=== PATIENT | male | born 1990 | race Caucasian/White ===

== ENCOUNTER 2017-07-21 11:02 | Emergency (ER) | payer SELFPAY ==
[~2017-07-21 11:02] MED LIST: FLU20 PO; NO RTN MEDS; OSE75 FT
--- NOTE | 2017-07-21 11:06 | ER Report ---
History and Physical Time Seen By MD: 11:05 (ADAN VIGIL) HPI/ROS CHIEF COMPLAINT: Suicidal and homicidal ideation HISTORY OF PRESENT ILLNESS: This is a 27-year-old male who presents to the emergency department with Black Police Department for some suicidal and homicidal ideations. According to the Police Department the patient's neighbors called dispatch when he tripped over their dog's leash and started yelling at the dog and and not making any sense. When the officers arrived patient was yelling and screaming and not making any sense, very upset with his roommate. Has made some homicidal and suicidal comments. Patient arrives in handcuffs, in PD custody but not detained. I cannot have a complete my initial conversation at this time he is having manic episodes. He is yelling and screaming about the [place]BBIE, and the government controlling everyone. He did state that he has recently "done some meth". He cannot tell me exactly when. Officers state that he does have a strong odor of alcohol. Patient remains in handcuffs with 2 officers at the bedside. Once the patient is done yelling he starts to cry and begins to mumble. He has no other complaints. REVIEW OF SYSTEMS: Constitutional: No fever, no chills. Eyes: No discharge. ENT: No sore throat. Cardiovascular: No chest pain, no palpitations. Respiratory: No cough, no shortness of breath. Gastrointestinal: No abdominal pain, no vomiting. Genitourinary: No hematuria. Musculoskeletal: No back pain. Skin: No rashes. Neurological: No headache. Psych: As above. (ADAN VIGIL) Allergies: Coded Allergies: No Known Allergies (Verified Allergy, Mild, 03/01/16) Home Meds No Active Prescriptions or Reported Meds Past Medical/Surgical History Patient has a past medical and surgical history of asthma, right thumb fracture , substance abuse, methamphetamine use, alcohol abuse, depression and anxiety. (ADAN VIGIL) Reviewed Nurses Notes: Yes (ADAN VIGIL) Hx Smoking: Yes Smoking Status: Current: Every Day Smoker (ADAN VIGIL) Constitutional Vital Sign - Last 24 Hours 3/08/0507/21/17 07/21/17 07/21/17 11:02 11:04 11:17 11:32 Temp 99.3 Pulse ??? 130 ? Resp 18 B/P (MAP) 142/116 (125) 142/116 Pulse Ox 95 O2 Delivery Room Air 07/21/17 07/21/17 07/21/17 07/21/17 11:47 11:51 12:00 12:02 Pulse ? Resp 11 B/P (MAP) 118/70 (86) 121/43 (69) Pulse Ox 89 07/21/17 07/21/17 07/21/17 07/21/17 12:17 12:30 12:32 12:47 Pulse 94 99 105 Resp 8 13 11 B/P (MAP) 112/58 (76) Pulse Ox 97 97 95 07/21/17 07/21/17 07/21/17 07/21/17 12:52 12:52 13:00 13:07 Pulse 100 95 Resp 15 16 B/P (MAP) 63/45 (51) Pulse Ox 95 O2 Flow Rate 2.0 07/21/17 07/21/17 07/21/17 07/21/17 13:12 13:15 13:22 13:30 Pulse 95 Resp 17 B/P (MAP) 92/53 (66) 99/49 (66) 99/49 (66) Pulse Ox 98 07/21/17 07/21/17 07/21/17 07/21/17 13:37 13:45 13:52 13:54 Temp 98.3 Pulse 92 89 Resp 16 14 B/P (MAP) 94/47 (63) Pulse Ox 98 98 07/21/17 07/21/17 07/21/17 07/21/17 13:57 14:00 14:12 14:15 Pulse 88 89 Resp 12 B/P (MAP) 96/52 (67) 102/59 (73) Pulse Ox 98 07/21/17 07/21/17 07/21/17 07/21/17 14:27 14:30 14:42 14:45 Pulse 82 86 Resp 0 6 B/P (MAP) 107/63 (78) 94/65 (75) Pulse Ox 95 07/21/17 07/21/17 07/21/17 07/21/17 14:50 15:00 15:05 15:15 Pulse 83 84 Resp 11 12 B/P (MAP) 85/47 (60) 85/44 (58) Pulse Ox 95 07/21/17 07/21/17 07/21/17 07/21/17 15:20 15:30 15:35 15:45 Pulse 81 75 Resp 15 B/P (MAP) 85/49 (61) 86/70 (75) 07/21/17 07/21/17 07/21/17 07/21/17 15:50 15:59 16:05 16:15 Pulse 82 73 B/P (MAP) 123/102 (109) 95/61 (72) 07/21/17 07/21/17 07/21/17 07/21/17 16:20 16:30 16:35 16:45 Pulse 81 79 B/P (MAP) 83/43 (56) 87/42 (57) 07/21/17 07/21/17 07/21/17 07/21/17 16:50 17:00 17:05 17:17 Pulse 82 83 B/P (MAP) 80/41 (54) 100/65 (77) 07/21/17 07/21/17 07/21/17 07/21/17 17:20 17:30 17:35 17:44 Pulse 80 81 Resp 12 12 B/P (MAP) 93/56 (68) 91/66 (74) 103/57 (72) Pulse Ox 94 92 07/21/17 07/21/17 07/21/17 07/21/17 17:49 17:50 17:50 18:00 Temp 98.3 Pulse 74 B/P (MAP) 105/60 (75) 97/68 (78) Pulse Ox 92 07/21/17 07/21/17 07/21/17 07/21/17 18:04 18:10 18:19 18:20 Pulse 74 77 B/P (MAP) 96/60 (72) 92/60 (71) Pulse Ox 91 92 07/21/1718 07/21/17 07/21/17 18:30 18:34 18:40 18:49 Pulse 78 80 B/P (MAP) 90/65 (73) 100/56 (71) Pulse Ox 89 89 07/21/17 07/21/17 07/21/17 07/21/17 18:50 19:00 19:04 19:10 Pulse 84 B/P (MAP) 93/57 (69) 95/62 (73) 94/63 (73) Pulse Ox 89 07/21/17 07/21/17 07/21/17 07/21/17 19:19 19:22 19:30 19:34 Pulse ??? 87 B/P (MAP) 91/69 (76) 109/64 (79) Pulse Ox 94 07/21/17 07/21/17 19:40 19:45 B/P (MAP) 79/42 (54) 105/70 (82) (CORINNABRUCE MARIE MD) Physical Exam General Appearance: The patient is alert, has no immediate need for airway protection and no signs of toxicity, yelling, cussing, very agitated, in handcuffs with [employer] at bedside. Eyes: Pupils equal and round no pallor or injection. ENT, Mouth: Mucous membranes are dry, lips are dry and flaky. No lesions. Respiratory: There are no retractions, lungs are clear to auscultation. Cardiovascular: Regular rate and rhythm, no murmurs, clicks or rubs. Gastrointestinal: Abdomen is soft and non tender, no masses, bowel sounds normal. Neurological: Alert, moving all extremities, no focal neural deficits. Unable to fully evaluate neurological status is patient yelling is and screaming. Skin: Warm and dry, no rashes. Musculoskeletal: Neck is supple non tender. Extremities are nontender, nonswollen and have full range of motion. No skin breakdown around the handcuffs site. DIFFERENTIAL DIAGNOSIS: After history and physical exam differential diagnosis was considered for psychosis including but not limited to chronic psychosis, medication noncompliance, medication side effect, depression and illicit drug use. (ADAN VIGIL-) Medical Decision Making Data Points Result Diagram: 07/21/17 1220 07/21/17 1220 Laboratory Hematology Test 07/21/17 12:20 07/21/17 12:47 Red Blood Count 5.34 M/uL (4.00-5.60) Mean Corpuscular Volume 84.9 fL (80.0-96.0) Mean Corpuscular Hemoglobin 29.6 pg (26.0-33.0) Mean Corpuscular Hemoglobin Concent 34.9 g/dL (32.0-36.0) Red Cell Distribution Width 13.9 % (11.5-14.5) Mean Platelet Volume 8.6 fL (7.2-11.1) Neutrophils (%) (Auto) 65.9 % (39.4-72.5) Lymphocytes (%) (Auto) 26.3 % (17.6-49.6) Monocytes (%) (Auto) 6.0 % (4.1-12.4) Eosinophils (%) (Auto) 0.7 % (0.4-6.7) Basophils (%) (Auto) 1.1 % (0.3-1.4) Nucleated RBC Relative Count (auto) 0.1 /100WBC Neutrophils # (Auto) 4.6 K/uL (2.0-7.4) Lymphocytes # (Auto) 1.9 K/uL (1.3-3.6) Monocytes # (Auto) 0.4 K/uL (0.3-1.0) Eosinophils # (Auto) 0.0 K/uL (0.0-0.5) Basophils # (Auto) 0.1 K/uL (0.0-0.1) Nucleated RBC Absolute Count (auto) 0.00 K/uL Sodium Level 144 mmol/L (137-145) Potassium Level 3.7 mmol/L (3.5-5.0) Chloride Level 104 mmol/L (98-107) Carbon Dioxide Level 19 mmol/L (22-30) Blood Urea Nitrogen 9 mg/dl (9-21) Creatinine 1.40 mg/dl (0.66-1.25) Glomerular Filtration Rate Calc > 60.0 Random Glucose 79 mg/dl (75-110) Calcium Level 8.9 mg/dl (8.4-10.2) Magnesium Level 2.2 mg/dl (1.7-2.2) Total Bilirubin 0.3 mg/dl (0.2-1.3) Aspartate Amino Transf (AST/SGOT) 25 U/L (0-35) Alanine Aminotransferase (ALT/SGPT) 36 U/L (0-56) Alkaline Phosphatase 54 U/L (0-126) Total Protein 7.0 gm/dl (6.3-8.2) Albumin 4.3 g/dl (3.5-5.0) Salicylates Level < 10 mg/L Salicylate Last Dose Date unk Acetaminophen Level < 10 ug/ml Serum Alcohol 173 mg/dl Urine Color Yellow Urine Clarity Clear Urine pH 6.0 pH (4.8-9.5) Urine Specific [place] 1.009 Urine Protein Negative mg/dL (NEGATIVE) Urine Glucose (UA) Negative mg/dL (NEGATIVE) Urine Ketones Negative mg/dL (NEGATIVE) Urine Blood Negative (NEGATIVE) Urine Nitrite Negative (NEGATIVE) Urine Bilirubin Negative (NEGATIVE) Urine Urobilinogen Negative mg/dL (0.2-1.9) Urine Leukocyte Esterase Negative (NEGATIVE) Urine RBC None /HPF (0-2/HPF) Urine WBC None /HPF (0-5/HPF) Urine Squamous Epithelial Cells None /LPF (NONE-FEW) Urine Bacteria Negative /HPF (NONE-FEW) Urine Hyaline Casts Many /LPF (NONE-FEW) Urine Mucus None /HPF (NONE-FEW) Urine Opiates Screen Negative Urine Barbiturates Screen Negative Ur Tricyclic Antidepressants Screen Negative Urine Phencyclidine Screen Negative Urine Amphetamines Screen Positive Urine Benzodiazepines Screen Negative Urine Cocaine Screen Negative Urine Cannabinoids Screen Negative Chemistry Test 07/21/17 12:20 07/21/17 12:47 White Blood Count 7.0 k/uL (4.5-11.0) Red Blood Count 5.34 M/uL (4.00-5.60) Hemoglobin 15.8 g/dL (14.0-18.0) Hematocrit 45.3 % (42.0-52.0) Mean Corpuscular Volume 84.9 fL (80.0-96.0) Mean Corpuscular Hemoglobin 29.6 pg (26.0-33.0) Mean Corpuscular Hemoglobin Concent 34.9 g/dL (32.0-36.0) Red Cell Distribution Width 13.9 % (11.5-14.5) Platelet Count 314 K/uL (150-450) Mean Platelet Volume 8.6 fL (7.2-11.1) Neutrophils (%) (Auto) 65.9 % (39.4-72.5) Lymphocytes (%) (Auto) 26.3 % (17.6-49.6) Monocytes (%) (Auto) 6.0 % (4.1-12.4) Eosinophils (%) (Auto) 0.7 % (0.4-6.7) Basophils (%) (Auto) 1.1 % (0.3-1.4) Nucleated RBC Relative Count (auto) 0.1 /100WBC Neutrophils # (Auto) 4.6 K/uL (2.0-7.4) Lymphocytes # (Auto) 1.9 K/uL (1.3-3.6) Monocytes # (Auto) 0.4 K/uL (0.3-1.0) Eosinophils # (Auto) 0.0 K/uL (0.0-0.5) Basophils # (Auto) 0.1 K/uL (0.0-0.1) Nucleated RBC Absolute Count (auto) 0.00 K/uL Glomerular Filtration Rate Calc > 60.0 Calcium Level 8.9 mg/dl (8.4-10.2) Magnesium Level 2.2 mg/dl (1.7-2.2) Total Bilirubin 0.3 mg/dl (0.2-1.3) Aspartate Amino Transf (AST/SGOT) 25 U/L (0-35) Alanine Aminotransferase (ALT/SGPT) 36 U/L (0-56) Alkaline Phosphatase 54 U/L (0-126) Total Protein 7.0 gm/dl (6.3-8.2) Albumin 4.3 g/dl (3.5-5.0) Salicylates Level < 10 mg/L Salicylate Last Dose Date unk Acetaminophen Level < 10 ug/ml Serum Alcohol 173 mg/dl Urine Color Yellow Urine Clarity Clear Urine pH 6.0 pH (4.8-9.5) Urine Specific [place] 1.009 Urine Protein Negative mg/dL (NEGATIVE) Urine Glucose (UA) Negative mg/dL (NEGATIVE) Urine Ketones Negative mg/dL (NEGATIVE) Urine Blood Negative (NEGATIVE) Urine Nitrite Negative (NEGATIVE) Urine Bilirubin Negative (NEGATIVE) Urine Urobilinogen Negative mg/dL (0.2-1.9) Urine Leukocyte Esterase Negative (NEGATIVE) Urine RBC None /HPF (0-2/HPF) Urine WBC None /HPF (0-5/HPF) Urine Squamous Epithelial Cells None /LPF (NONE-FEW) Urine Bacteria Negative /HPF (NONE-FEW) Urine Hyaline Casts Many /LPF (NONE-FEW) Urine Mucus None /HPF (NONE-FEW) Urine Opiates Screen Negative Urine Barbiturates Screen Negative Ur Tricyclic Antidepressants Screen Negative Urine Phencyclidine Screen Negative Urine Amphetamines Screen Positive Urine Benzodiazepines Screen Negative Urine Cocaine Screen Negative Urine Cannabinoids Screen Negative Toxicology Test 07/21/17 12:20 07/21/17 12:47 Salicylates Level < 10 mg/L Salicylate Last Dose Date unk Acetaminophen Level < 10 ug/ml Serum Alcohol 173 mg/dl Urine Opiates Screen Negative Urine Barbiturates Screen Negative Ur Tricyclic Antidepressants Screen Negative Urine Phencyclidine Screen Negative Urine Amphetamines Screen Positive Urine Benzodiazepines Screen Negative Urine Cocaine Screen Negative Urine Cannabinoids Screen Negative Urinalysis Test 07/21/17 12:47 Urine Color Yellow Urine Clarity Clear Urine pH 6.0 pH (4.8-9.5) Urine Specific [place] 1.009 Urine Protein Negative mg/dL (NEGATIVE) Urine Glucose (UA) Negative mg/dL (NEGATIVE) Urine Ketones Negative mg/dL (NEGATIVE) Urine Blood Negative (NEGATIVE) Urine Nitrite Negative (NEGATIVE) Urine Bilirubin Negative (NEGATIVE) Urine Urobilinogen Negative mg/dL (0.2-1.9) Urine Leukocyte Esterase Negative (NEGATIVE) Urine RBC None /HPF (0-2/HPF) Urine WBC None /HPF (0-5/HPF) Urine Squamous Epithelial Cells None /LPF (NONE-FEW) Urine Bacteria Negative /HPF (NONE-FEW) Urine Hyaline Casts Many /LPF (NONE-FEW) Urine Mucus None /HPF (NONE-FEW) (BRUCE JONES MD) ED Course/Re-evaluation ED Course The patient was admitted to room via police department custody. A history and physical were obtained to the best of my ability. Differential diagnoses were considered. Initially it was very difficult to get any information out of the patient he was screaming and yelling about the DEBBIE and garments involvement in controlling everybody. Patient sitting on the gurney and handcuffs having moments of apparent rage where he starts shaking and then will begin yelling again I have gone in multiple times to talk to the patient's try to calm him down. Patient will calm down for a few moments and then continues to yell disturbing the emergency department with obscenities. This time I did talk to the patient's and he has agreed to take some oral medications to help calm him down. Patient was initially given 10 mg of oral Zyprexa, 50 mg of oral Benadryl , and 2 mg of oral Ativan. After about 30-45 minutes the patient was still agitated and not fully cooperative. I did then order 10 mg of IM Zyprexa. About 15 minutes after the Zyprexa was given I go back in and talked to the patient. Patient is now agreeable to giving us a urine specimen as well as collecting blood work. Patient's lips are very dry. Patient states he did methamphetamines about 1 day ago, he also admits to drinking alcohol but he is not sure how much she's had or what he's had or when his last drink was. He has also made some suicidal comments while in the emergency department, not giving any more information other than just wanting to kill himself. He also states he wishes he could stop using meth, "it makes me go crazy and do crazy stuff". He denies taking any other illicit drugs. Patient is less anxious and less agitated. Patient has calmed down to a point at which the officers can remove the handcuffs over they do remain at the bedside. I discussed this case with Dr. Jones and we have detained the patient. The patient slept most of the time after the last dose of zyprexa was given. Vitals remained stable while in the ED. The patient was escorted to the snf center with officers. The patient's laboratory studies were unremarkable, other than his creatinine 1.40. Creatinine in 2008 was 1.20. Negative UA. The alcohol was 173. The urine drug screen was positive for methamphetamines. The patient is resting comfortably, oxygen saturation 97%, heart rate 90, blood pressure 99/49. 07/21/2017 2:52:50 pm the patient is resting comfortably, vital signs are stable, heart rate 79 BPM. SPO2 95%. An NIBP 94/65. The patient has been accepted to [facility]. 07/21/2017 3:27:13 pm We have been in contact with the county home demonstrator and trying to get the transfer resolved. 07/21/2017 3:58:59 pm awaiting mental health examiner 07/21/2017 5:39:48 pm health examiner did come in and up hold the total 25 paperwork. The patient will be transferred from emergency department to the snf center. 07/21/2017 5:51:42 pm nursing staff did give the patient up to assist him to the bathroom he did ambulate though it was a 2 person assist, we will keep an eye on him for another hour and reassess. Patient was otherwise cooperative. 07/21/2017 7:59:25 pm the patient was ambulated to the bathroom again patient did much better, he is asking for something eat. The patient will be given some food and then transported to the snf center. Decision to Disposition Date: Jul 21, 2017 Decision to Disposition Time: 20:00 (ADAN VIGIL PATTERN MARKER-BC) Depart Departure Latest Vital Signs Vital Signs Date Time Temp Pulse Resp B/P (MAP) Pulse Ox O2 Delivery O2 Flow Rate FiO2 07/21/17 19:45 105/70 (82) 07/21/17 19:34 87 94 07/21/17 17:50 98.3 07/21/17 17:35 12 07/21/17 12:52 2.0 07/21/17 11:04 Room Air (BRUCE JONES MD) Impression: Primary Impression: Suicidal ideation Condition: Improved Disposition: [facility] TO CARE HOME/CORRECTIONAL F New Scripts No Active Prescriptions or Reported Meds Patient Instructions: Abuse of Alcohol (ED), Methamphetamine Abuse (ED) Additional Instructions: Drink plenty of fluids. Get plenty of rest. Stop drinking alcohol and abusing methamphetamines. SIEBEL ARCHITECT/PA consult with MD: Verbally MD Consult Note: Patient with homicidal and suicidal statements, not in his right mind, admits to recent methamphetamine use, currently on police hold, but not detained by [employer]. Was initially on police hold and not detained; further information came out once he arrived here at the hospital. Because of combativeness and agitation, he was given oral doses of Zyprexa (10mg), Ativan ( 2mg) and Benadryl (50mg) which he agreed to take. These were not effective to calm him down, so an IM dose of Zyprexa 10mg was given as well. See the history and physical noted above by our nurse practitioner, Adan, who is taking care of the patient here in the ER. My emergency snf process was begun after he was sedated by the above medicines so I was unable read the patient his rights in association with the title 25 process and will need to be done at a later time, but would still be considered detained at this point. Discussed with the Black police who plan on dropping the police hold and only giving a citation at this point. The patient has been accepted by [facility], but because of snf, [place] [facility] [place] is causing a problem. Contacting behavioral health, the county home demonstrator and mental health examiner to help resolve and find a good disposition plan for him. Determined that the patient would go to the snf center at this time and further treatment to be determined. (BRUCE JONES MD) ADAN VIGIL PATTERN MARKER-BC Jul 21, 2017 11:05 BRUCE JONES MD Jul 21, 2017 12:33
[2017-07-21] MEDS ORDERED: diphenhydrAMINE 25 MG CAP PO ONE (11:15)
[2017-07-21] MEDS ORDERED: LORazepam 1 MG TAB PO ONE (11:15)
[2017-07-21] MEDS ORDERED: OLANZapine ZYDIS ODT 5MG TABDP PO ONE (11:15)
[2017-07-21] MEDS ORDERED: WATER STERILE 10 ML VIAL IM ONLY ONE (11:40)
[2017-07-21] MEDS ORDERED: OLANZapine 10 MG VIAL IM ONLY ONE (11:40)
[2017-07-21 12:40] LABS: PLATELET COUNT, AUTOMATED 314 K/uL (150-450)
--- NOTE | 2017-07-21 17:08 | [facility] - Psychiatric Evaluation ---
ER - Title 25 MHE Evaluation Title 25 Evaluation Patient Detained By: Physician (Roscoe Jones MD and Adan Grimm) Referral Source: Law Enforcement Date Patient Detained: Jul 21, 2017 Time Patient Detained: 12: Date Prison Expires: Jul 25, 2017 Time Prison Expires: : Legal Status: Police Hold: Yes Legal Status: Residence: [facility] Resident, State Resident Assessment Data Provided By: Other Source (ER Professionals) HPI/ROS: From ER professional Adan Grimm, "The patient was admitted to room via police department custody. A history and physical were obtained to the best of my ability. Differential diagnoses were considered. Initially it was very difficult to get any information out of the patient he was screaming and yelling about the DEBBIE and garments involvement in controlling everybody. Patient sitting on the gurney and handcuffs having moments of apparent rage where he starts shaking and then will begin yelling again I have gone in multiple times to talk to the patient's try to calm him down. Patient will calm down for a few moments and then continues to yell disturbing the emergency department with obscenities. This time I did talk to the patient's and he has agreed to take some oral medications to help calm him down. Patient was initially given 10 mg of oral Zyprexa, 50 mg of oral Benadryl, and 2 mg of oral Ativan. After about 30-45 minutes the patient was still agitated and not fully cooperative. I did then order 10 mg of IM Zyprexa. About 15 minutes after the Zyprexa was given I go back in and talked to the patient. Patient is now agreeable to giving us a urine specimen as well as collecting blood work. Patient's lips are very dry. Patient states he did methamphetamines about 1 day ago, he also admits to drinking alcohol but he is not sure how much she's had or what he's had or when his last drink was. He has also made some suicidal comments while in the emergency department, not giving any more information other than just wanting to kill himself. He also states he wishes he could stop using meth, "it makes me go crazy and do crazy stuff". He denies taking any other illicit drugs. Patient is less anxious and less agitated. Patient has calmed down to a point at which the officers can remove the handcuffs over they do remain at the bedside Admit due to SI or Attempt: No Suicide Plan: Has Plan w/out Access Current Suicide Plan Patient stated to ER professional FLEX Pelletier, that he wants to kill himself. Alcohol or Drugs Involved: Yes Current Intoxication Info: Patient toxicology screen is positive for amphetamines and alcohol Is Patient Info Reliable: No (Patient was psychotic, and agitated. he was chemically restrained, and now sleeping beyond easy wakefulness. Called his name loudly several times.) Is Collateral Info Reliable: Yes ( and ER doctors) Current Home Psych Meds: Unknown at this time Mental Status Exam General Appearance: Other (Sleeping related to chemical restraint) Speech: Other (Sleeping related to chemical restraint) Mood: Other (Sleeping related to chemical restraint) Affect: Other (Sleeping related to chemical restraint) Thought Process: Other (Sleeping related to chemical restraint) Thought Content: Suicidal Ideation (Patient stated to ER professional FLEX Pelletier, that he wants to kill himself.), Homicidal Ideation ("Has made some homicidal and suicidal comments," says ER Adan MCCORD) Insight Judgment: Poor Sleep: Hypersomnia Delusions: Persecutory, Paranoia Current Risk & History Current Dangerous Risk Assessm: Current Suicide Ideation, Homicidal Ideation, Agitation this Encounter, Ubable to Care for Self Past Dangerous Risk Assessm: Other (Cared for in 2008 at [facility] for psychiatric problem of suicidal ideation ) Prior Alcohol/Drug Abuse Extent of AOD use is unknown at this time. Previous Suicide Attempt: No Previous Attempt Previous Psychiatric Illness: No Previous Psychiatric Treatment: Yes (Was seen in 2009 at [facility] for suicidal ideation) Risk Assessment & Disposition Evaluated Risk Assessment: Risk is very high. Patient is psychotic, unable to perceive reality. Without chemical restraint he is agitated and aggressive. Clear he is experiencing some delusions about being a "DEBBIE pawn" that seem to affect him in impulsive and unsafe ways. He is screaming and tearful when not medicated. He needs a structured, safe environment to stabilize. Without stabilization, he is likely to further decompensate, hurt himself or others physically. Impression: Primary Impression: Suicidal ideation Meets Mental Illness Req.: Yes Meets Dangerousness Req.: Yes Emergency Prison to be: Upheld Decision Comment: Risk is very high. Patient is psychotic, unable to perceive reality. Without chemical restraint he is agitated and aggressive. Clear he is experiencing some delusions about being a "DEBBIE pawn" that seem to affect him in impulsive and unsafe ways. He is screaming and tearful when not medicated. He needs a structured, safe environment to stabilize. Without stabilization, he is likely to further decompensate, hurt himself or others physically. Patient is unable to care for himself and his needs are currently beyond the scope of outpatient care. Date of Decision: Jul 21, 2017 Time of Decision: 17:00 Patient is Medically Stable at: Yes Disposition: Transfer (In ER currently, will be subsequently held in safe setting of [facility]) MARIA LUISA MURGUIA LPC Jul 21, 2017 17:08
[2017-07-21 19:45] VITALS: BP 105/70
== END 2017-07-21 20:15 ==
LOC: ER 12:22
DX: R45.851 Suicidal ideations (principal); F15.90 Other stimulant use, unspecified, uncomplicated; F32.9 Major depressive disorder, single episode, unspecified; F41.9 Anxiety disorder, unspecified
CPT/HCPCS: 36415; 80305; 80320; 80329; 81001; 83735; 84443; 85025; 96372; 99284; A4216; J3490; Q0163; 82040; 82247; 82310; 82374; 82435; 82565; 82947; 84075; 84132; 84155; 84295; 84450; 84460; 84520

== ENCOUNTER 2017-07-23 15:46 | Emergency (ER) | payer SELFPAY ==
[2017-07-23 16:19] LABS: PLATELET COUNT, AUTOMATED 280 K/uL (150-450)
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
[2017-07-23 17:51] VITALS: BP 126/58
== END 2017-07-23 18:00 ==
LOC: ER 16:09
DX: F41.1 Generalized anxiety disorder (principal)
CPT/HCPCS: 36415; 80305; 80320; 80329; 81001; 82040; 82247; 82310; 82374; 82435; 82565; 82947; 83735; 84075; 84132; 84155; 84295; 84443; 84450; 84460; 84520; 85025; 99284

== ENCOUNTER 2017-07-23 16:50 | Inpatient (IN) | payer SELFPAY ==
[~2017-07-23] VITALS: Ht 177.8 cm; Wt 79.4 kg
[2017-07-23] MEDS ORDERED: NICOTINE CARTRIDGE 1 EA PO PRN (18:55)
[2017-07-23] MEDS ORDERED: NICOTINE INH SYSTEM 10 MG/INH INH PRN (18:55)
[2017-07-23] MEDS ORDERED: MAG HYD/AL HYD/SIMETH 30ML UDC PO PRN (18:55)
[2017-07-23 22:19] VITALS: BP 134/85
[2017-07-24 04:12] VITALS: BP 109/57
[2017-07-24] MEDS: MULTIVITAMINS PO SCH (08:23)
[2017-07-24] MEDS: buPROPion SR 150 MG TABCR PO SCH (14:18)
[2017-07-24 21:44] VITALS: BP 126/78
[2017-07-25 06:18] VITALS: BP 110/65
[2017-07-25] MEDS: MULTIVITAMINS PO SCH (08:19)
[2017-07-25] MEDS: buPROPion SR 150 MG TABCR PO SCH ×2 (08:19→12:37)
--- NOTE | 2017-07-25 10:05 | BHS Progress Note ---
[facility] - Subjective Progress Notes Subjective Patient cooperative with treatment team this AM, alcohol withdrawal considered complete, mood good. Patient tolerant of wellbutrin and will increase dose today. Will set up outpatient treatment, and plan for discharge tomorrow. . Psychosis associated with methamphetamine use resolved. appetite and sleep good. No other concerns. Suicidal Ideation: None Homicidal Ideation: None [facility] - Objective Physical Exam Vital Signs Vital Signs Date Time Temp Pulse Resp B/P (MAP) Pulse Ox O2 Delivery O2 Flow Rate FiO2 07/25/17 06:18 97.5 46 15 110/65 (80) 95 Room Air Muscle Strength and Tone: WNL Gait and Station: Steady [facility] Medications Reviewed: Side Effects, Benefits of Medication, Risks Allergies Reviewed: Yes Mental Status Exam General Appearance: Casual, Well Groomed, Good Eye Contact, Cooperative, Polite , Good Interaction, No Unkept, No Tearful, No Psychomotor Agitation, No Psychomotor Retardation, No Bizarre Mannerisms, No Tics Speech: Clear, Spontaneous, Normal Rate, Normal Rhythm, Normal Volume, Normal Tone, No Garbled, No Rambling, No Inappropriate Mood: Dysthmic/Depressed (improved) Affect: Full and Appropriate, Calm, No Withdrawn, No Tearful, Anxious (some) Thought Process: Organized, Logical, Goal Directed, No Loose Associations Thought Content: No Suicidal Ideation, No Homicidal Ideation, No Delusions, No Auditory Halllucinations, No Visual Hallucinations, No Thought Broadcasting, No Ideas of Reference, No Obsessions, No Compulsions Sensorium: Clear Cognition: Alert & Oriented-Person, Alert & Oriented-Place, Alert & Oriented- Time, [id number] Memory: Immediate, Recent, Remote Intelligence: Average Insight Judgment: Fair (grossly intact in absence of methamphetamine , and alcohol. ) [facility] Assessment and Plan [id number] Encounter Date: Jul 25, 2017 [id number] Encounter Time: 09:40 [facility] Plan: Necessary Precautions, Individual/Group Therapy, Admin/Titrate Meds, Educate Patient Tobacco Medications: Started Multpiple Antipsychotics Used: No Problems: (1) Stimulant use disorder Status: Chronic Assessment & Plan: moderate, to severe. psychosis resolved now, but secondary to acute use. Rule out persisting depressive disorder. (2) Alcohol use disorder, moderate, in early remission Status: Chronic Condition 1. increase wellbutrin SR to 150mg PO QAM and Qnoon 2. trial of hydroxizine 25 to 50 mg PO QAM PRN anxiety 3. plan for discharge tomorrow. SEEMA BRUCE MD Jul 25, 2017 10:05
[2017-07-25] MEDS: hydrOXYzine PAMOATE 25 MG CAP PO PRN (10:53)
--- NOTE | 2017-07-25 16:20 | HISTORY AND PHYSICAL ---
DATE OF ADMISSION: July 23, 2017 The patient was seen on 24 July 2017 for this dictation at approximately 11:00 a.m. PRESENTING PROBLEM AND CHIEF COMPLAINT Methamphetamine intoxication and related psychotic disturbance. HISTORY OF PRESENT ILLNESS This is a 27-year-old male who was initially brought to the [facility] Room on July 21, 2017, under an emergency detainment. The patient was seen to be experiencing suicidal and homicidal ideation, compounded by signs of psychosis, brought in by [place] [employer]. Apparently, neighbors called dispatch when he was found yelling outside and not making any sense. He was upset with his roommate. The patient made homicidal and suicidal comments. The patient was emergently detained. The patient was intoxicated with alcohol and admitted to using methamphetamine. The patient was brought to the local correction facility due to no available beds of the type necessary to house this patient on Behavioral Health. The patient was later discharged from skilled nursing when a bed became available and was brought to the Behavioral Health Unit on July 23, 2017. The patient was admitted on a voluntary basis at that time. During initial interview, the patient was calm and polite. Gross psychotic disturbance likely associated with methamphetamine and alcohol consumption had largely resolved. The patient reports he had abusing methamphetamine over and over. "I need to stop." The patient reports that peer pressure makes him succumb to continue using methamphetamine. The patient has been using amphetamines heavier and drinking more over the last eight months. The patient had no homicidal ideation that persisted. He had vague suicidal thoughts. The patient attributes this to drug and alcohol use. The patient may have a history of persisting depressive disorder type symptomatology in the past, but currently, the patient admits that alcohol and methamphetamine use is the likely precursor to a dysphoric and angry mood. The patient denies any history of spring. Psychotic condition seems to be related entirely to methamphetamine and exacerbated further with alcohol. This seems to have resolved. No panic attacks or PTSD. The patient does report some high social anxiety at times, and this needs further evaluation. The patient does not appear excessively anxious during the interview. The patient reports being organized at home overall. He denies any OCD, anorexia, or bulimia. He has never self-harmed. The patient reports somatization symptoms in the form of GI pain and tightness when under stress. Specific stressors in the patient's life are that he is not currently working. The patient reports he received some inheritance that he tried to live off of. The patient reports this was a mistake, and he should have been working as it gave him more time to abuse substances. The patient, again, admits to the peer pressure which the patient reports pushing him into using methamphetamine that "scrambles my brain." MENTAL HEALTH HISTORY The patient was an inpatient here once in 2008. He was angry with his mother at the time, according to past reports. Please see paper chart record as it preexisted electronic record. The patient reports he has only had about one month of sobriety in the last several years from substances. He was going to [facility]. It is unknown if he continues there. He has not been to rehab of any kind, and the patient denies a history of suicide attempt. FAMILY PSYCHIATRIC HISTORY The patient states his mother may suffer from bipolar illness, and his dad may have "drank some." Siblings may have some degree of psychiatric disturbance, but the patient is vague to the details. No suicides are believed to have been completed in the family history. PAST MEDICAL HISTORY The patient reports overall good health. MEDICATIONS He is not on any medications for medical cause and is not currently on any psychiatric medications. ALLERGIES The patient denies any allergies. SOCIAL HISTORY The patient was born in [place] and grew up in [place]. He reports his parents as at the time of his . His father when he was age 23 secondary to colon cancer. The patient reports having one brother and two sisters who are younger, it is believed, and he has some half-siblings as well. The patient reports growing up was difficult for him as he grew up with a severely disabled sister in the home which was hard on him and the family. The patient has never been in the . He has never . He has no children. He is currently not in a relationship with a significant other. He considers himself heterosexual. The patient last worked in the [employer] industry in February 2017. The patient reports receiving some inheritance after that and quitting work. He lives with one roommate. LEGAL HISTORY He has a legal history for DUI concerning alcohol at age 20 and a second DUI in 2015 concerning alcohol. SUBSTANCE ABUSE HISTORY The patient has experimented and used many substances in the past including MDMA , LSD, methamphetamine, marijuana, and alcohol. At this point, the patient desires to stop methamphetamine use, and the patient is cautioned about the effects of alcohol use as well. This will require further evaluation to see if the patient is sincere in his efforts to stop using. PHYSICAL EXAMINATION Please see emergency room note. The patient passed through the emergency room on July 23, 2017, after being discharged from skilled nursing. Vital signs at that time indicated temperature 98.6, pulse 90, respiratory rate 16, blood pressure 122/86 , and pulse oximetry 96% on room air. LABORATORY DATA CBC was unremarkable. CMP unremarkable as well. TSH was slightly elevated at 5.43. Urinalysis unremarkable. Toxicology screen positive for benzodiazepines , negative for serum alcohol, and negative for amphetamines after being in the correction facility. MENTAL STATUS EXAMINATION GENERAL APPEARANCE, BEHAVIOR, AND ATTITUDE: This is a polite, 27-year-old male. Psychosis associated initially with methamphetamine intoxication appears to have been resolved. Some psychomotor retardation evident. Making good eye contact. No bizarre mannerisms or tics. No periods of tearfulness. SPEECH: Quiet at times, but otherwise within normal limits. MOOD: Described as dysphoric, but improving. AFFECT: Minimally constricted and mood congruent. THOUGHT PROCESSES: Appeared largely goal directed and logical, the patient stating he would like help with drug and alcohol dependence. No loose associations or flight of ideas. THOUGHT CONTENT: Hallucinations associated with methamphetamine intoxication had resolved. No ideas of reference, thought broadcasting, delusions, obsessions, or compulsions. The patient is having some vague suicidal thoughts at times. He is denying homicidal ideation. SENSORIUM: Clear. COGNITION: Alert and oriented to person, place, time, and situation. MEMORY: Immediate, recent, and remote estimated intact. INTELLIGENCE: Average based on interview. INSIGHT AND JUDGMENT: Remain seemingly grossly intact and improving in the absence of alcohol or methamphetamine use. ASSESSMENT This is a 27-year-old male who may have some potential underlying anxiety and depressive symptoms; however, it is paramount that the patient first distance himself from all alcohol and substance use. Patient appears to be intellectualizing any symptoms at this point. We will treat alcohol withdrawal to completion. We will also look into any concerns with methamphetamine withdrawal, and we will consider Wellbutrin to help this patient possibly avoid methamphetamine use in the future if anxiety is not increased from Wellbutrin. DIAGNOSES 1. Alcohol use disorder, moderate. 2. Stimulant use disorder, moderate to severe. 3. Methamphetamine stimulant-induced psychosis. 4. Rule out persisting depressive disorder. 5. Rule out anxiety disorder, unspecified. PLAN 1. Admit to the unit. 2. Necessary precautions will be implemented. 3. The patient will participate in individual and group therapy. 4. Medications will be titrated accordingly. 5. Collateral information to be gained as necessary. 6. Estimated length of stay three to five days. MTDD
[2017-07-26 04:37] VITALS: BP 137/99
[2017-07-26] MEDS: buPROPion SR 150 MG TABCR PO SCH ×2 (08:00→12:20)
[2017-07-26] MEDS: MULTIVITAMINS PO SCH (08:25)
[2017-07-26] MEDS: hydrOXYzine PAMOATE 25 MG CAP PO PRN (08:27)
[2017-07-26] MEDS ORDERED: BUPR-126 PO (10:13)
[2017-07-26] MEDS ORDERED: HYDR25CA83 PO (10:16)
[2017-07-26] MEDS ORDERED: MULT-859 PO (10:17)
[2017-07-26] MEDS ORDERED: NICOTROL (11:54)
[2017-07-26] MEDS ORDERED: NIC10R INH (11:57)
[2017-07-26] MEDS ORDERED: NICOTROL CARTRIDGE PO (11:58)
[2017-07-26] MEDS ORDERED: buPROPion SR 150 MG TABCR PO SCH (12:00)
--- NOTE | 2017-07-27 20:09 | DISCHARGE SUMMARY ---
DATE OF ADMISSION: July 23, 2017 DATE OF DISCHARGE: July 26, 2017 The patient was seen regarding this discharge note around 0900 hours on 26 July 2017. 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 The patient then transferred to skilled nursing and returned to the Behavioral Health Unit on a voluntary basis to ensure full recovery of psychotic state. The patient was calm and polite throughout his interview, the patient demonstrating to some degree a level of immaturity throughout his stay. The patient was using alcohol and methamphetamine, again resulting in psychotic state. Psychosis resolved quickly. The patient agreed to a trial of Wellbutrin to hopefully help abstain and not increase anxiety. The patient was also placed on hydroxyzine with good results. The patient did take an active role in treatment. The patient is having ongoing conflict with roommate, whom the patient states also uses methamphetamine. The patient at time of discharge discharged into the care of his mother as the patient will likely part company with his roommate at this time. No suicidal or homicidal ideation existed. Tarasoff call was made to the patient's roommate as in a psychotic state the patient had voiced homicidal thoughts against roommate. The patient was discharged home. PHYSICAL EXAMINATION Please see emergency room note. Notable for: GENERAL: A 27-year-old male who had returned from previous skilled nursing stay where he was admitted under a state of psychosis. VITAL SIGNS: At time of admission, temperature 98.6, pulse 90, respiratory rate 16, blood pressure 122/86, and pulse oximetry 96% on room air. PSYCHIATRIC: The patient had largely normalized and returned to baseline behaviors. LABORATORY DATA CBC was unremarkable. CMP unremarkable. TSH slightly high at 5.43. Urinalysis unremarkable. Toxicology screen positive for benzodiazepines; negative for other substances of abuse. Undetectable serum alcohol level. Benzodiazepines were likely given in the hospital or skilled nursing facility setting. MENTAL STATUS EXAMINATION AT TIME OF DISCHARGE GENERAL APPEARANCE, BEHAVIOR, AND ATTITUDE: This is a thin, 27-year-old male interacting in a way that indicates a large degree of immaturity. The patient at times was trying to intellectualize any symptoms of illness. The patient did verbalize a desire to stop using illicit substances and alcohol. No psychomotor activation or retardation. No bizarre mannerisms or tics, making good eye contact. No periods of tearfulness. SPEECH: Largely within normal limits. Regular rate, rhythm, volume, and tone. MOOD: Described as "okay." AFFECT: Neutral to full at times and mood congruent overall. THOUGHT PROCESSES: Goal directed, logical. No loose associations or flight of ideas. THOUGHT CONTENT: Free of auditory or visual hallucinations, ideas of reference , thought broadcasting, delusions, obsessions, or compulsions. The patient is adamantly denying suicidal or homicidal ideation at time of discharge and, again , the patient's roommate had been notified secondary to the patient making brief homicidal statements toward roommate when in a state of psychosis and acute methamphetamine intoxication. SENSORIUM: Clear at time of discharge. COGNITION: Alert and oriented to person, place, time, and situation. MEMORY: Immediate, recent, and remote estimated intact. INTELLIGENCE: Average based on interview. INSIGHT AND JUDGMENT: Considered grossly intact and appropriate for outpatient care in the absence of illicit substance or alcohol use. RESULTS OF TESTING IMAGING: None. LABORATORY DATA: See above. CONSULTATIONS None. TREATMENT The patient received medications and participated in individual and group therapy. HOSPITAL COURSE The patient remained overall calm and cooperative throughout his stay. Psychosis completely resolved, likely related to amphetamine use. The patient' s alcohol withdrawal was considered very mild to nonexistent in nature. The patient's mood continued to improve. CONDITION OF PATIENT ON DISCHARGE Stable. Considered minimal risk to himself or others in the absence of alcohol or drug use. DISPOSITION The patient discharged to home in the care of his mother. The patient would follow up with outpatient medical management and therapy as scheduled. He was given the crisis line should symptoms return. He agreed to stop alcohol and illicit drug use. The patient will remain on a multivitamin with minerals daily , Wellbutrin SR 150 mg at breakfast and lunch, and Vistaril 25 to 50 mg p.o. every six hours p.r.n. for anxiety or insomnia. Risks, benefits, and alternatives of the above discharge plan were discussed. Informed consent was given to proceed with the above discharge plan by this competent patient and the patient's mother present at time of discharge. The patient's roommate is also aware of the patient's discharge. CARLOS
== END 2017-07-26 14:33 | disposition home or self-care (01) | DRG 897 ==
LOC: BHS 16:50
PROVIDERS: ADMIT Psychiatry & Neurology Psychiatry; ATTEND Psychiatry & Neurology Psychiatry
DX: F15.259 Other stimulant dependence with stimulant-induced psychotic disorder, unspecified (principal); R45.851 Suicidal ideations; F34.1 Dysthymic disorder; F10.20 Alcohol dependence, uncomplicated; F41.9 Anxiety disorder, unspecified; R45.850 Homicidal ideations; Y90.0 Blood alcohol level of less than 20 mg/100 ml; Z56.0 Unemployment, unspecified; Z59.2 Discord with neighbors, lodgers and landlord; Z81.1 Family history of alcohol abuse and dependence; Z81.8 Family history of other mental and behavioral disorders
CPT/HCPCS: 90853; Q0177

== ENCOUNTER → 2017-08-14 | Outpatient (CLI) | payer SELFPAY ==
[~2017-08-14] MED LIST changes: +BUPR-126 PO; +HYDR25CA83 PO; +MULT-859 PO; +NIC10R INH; +NICOTROL; +NICOTROL CARTRIDGE PO
--- NOTE | 2017-08-14 05:54 | RADIOLOGY IMAGING REPORT ---
FACILITY: [facility] - [place] PATIENT NAME: Winston Fish : 1990 MR: [id number] V: [id number] EXAM DATE: ORDERING PHYSICIAN: TIM MARTINEZ TECHNOLOGIST: Location: [facility] [place] Patient: Winston Fish : 1990 Visit/Account:[id number] Date of Sevice: 08/14/2017 EXAMINATION: Cervical Spine 2 views HISTORY: . 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 COMPARISON: None. FINDINGS: Normal alignment along the cervical spine. No evidence of fracture or subluxation. Vertebral body hei ght is maintained. The dens appears radiographically intact. Normal alignment at the craniocervical j unction. There is air extending along the spinal canal related to the intracranial injury. IMPRESSION: No acute osseous findings along the cervical spine. Normal alignment. Report Dictated By: Mike Herman MD at 08/14/2017 5:45 AM Report E-Signed By: Mike Herman MD at 08/14/2017 5:49 AM WSN:[id number]
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
== END ==
LOC: RAD 04:56
DX: Z02.89 Encounter for other administrative examinations (principal); T14.8XXA Other injury of unspecified body region, initial encounter
CPT/HCPCS: 70250; 72040